=== PATIENT | female | born 1960 | race Caucasian/White ===

== ENCOUNTER → 2017-11-19 | Outpatient (CLI) | payer SELFPAY ==
--- NOTE | 2017-11-19 13:25 | Diagnostic Imaging Report ---
EXAMINATION: Pelvic ultrasound. INDICATION: Postmenopausal bleeding. COMPARISON: There are no prior studies available for comparison. FINDINGS: The uterus is not enlarged measuring 7.3 x 3.7 x 3.9 cm. The endometrial lining is thickened measuring 11 mm (normal 5 mm or less). This finding is nonspecific; however, if the patient is indeed postmenopausal, then the endometrium is abnormally thickened. There is no focal mass involving the uterus to suggest a fibroid. In the left adnexa, there is a 7.0 x 5.2 x 5.4 cm solid mass. This may contain a few calcifications. This finding is not as echogenic as would be expected for a dermoid but that possibility should still be considered. I would recommend that CT be performed for further evaluation of this finding. There is also a small amount of free fluid in the left adnexa. The right ovary is unremarkable. There is good blood flow to the ovary and there is no sign of torsion. IMPRESSION: 1. There is a 7.2 x 5.2 x 5.4 cm solid appearing mass in the left adnexa. This is of uncertain etiology but could be related to an ovarian dermoid. CT would be recommended for further evaluation. 2. The uterus is not enlarged and there is no evidence for a fibroid; however, the endometrial lining is thickened if the patient is indeed postmenopausal. Clinical followup is recommended. Dictated by: Dictated on workstation # [id number]
== END ==
LOC: RAD 11:32
PROVIDERS: ATTEND Nurse Practitioner Family
DX: N95.0 Postmenopausal bleeding (principal); R19.09 Other intra-abdominal and pelvic swelling, mass and lump
CPT/HCPCS: 76830; 76856